=== PATIENT | female | born 1965 | race Caucasian/White ===

== ENCOUNTER 2021-08-17 08:05 | Day surgery (SDC) | payer BC, OTHER ==
[~2021-08-17 08:05] MED LIST: Sodium Chloride 0.9% 10 ML Syringe FLUSH PRN
[2021-08-17] MEDS ORDERED: Midazolam 1 MG/ML 2 ML SDV ONE ×2 (08:29→09:23)
[2021-08-17] MEDS ORDERED: Propofol 200 MG/20 ML SDV ONE ×2 (08:30→09:23)
[2021-08-17] MEDS: Lactated Ringers 1,000 ML IV SCH (08:47)
== END 2021-08-17 10:44 | disposition home or self-care (01) ==
LOC: LL.SDS 08:05
PROVIDERS: ATTEND Surgery
DX: R19.5 Other fecal abnormalities (principal); F32.A Depression, unspecified; E66.9 Obesity, unspecified; Z90.49 Acquired absence of other specified parts of digestive tract; Z98.890 Other specified postprocedural states; Z79.899 Other long term (current) drug therapy
CPT/HCPCS: 00812; J2250; J2704; J7120